=== PATIENT | female | born 1970 | race Caucasian/White ===

== ENCOUNTER → 2022-03-09 | Day surgery (SDC) | payer OTHER ==
[~2022-03-09] VITALS: Ht 167.6 cm; Wt 75.3 kg
[~2022-03-09] MED LIST: DAILY VALUE1 EACH PO; HYDROCODON-ACE1 EAC2 PO; ZYRTEC10 M3 PO
== END | disposition home or self-care (01) ==
LOC: OR 09:03
DX: S62.615A Displaced fracture of proximal phalanx of left ring finger, initial encounter for closed fracture (principal); W01.190A Fall on same level from slipping, tripping and stumbling with subsequent striking against furniture, initial encounter
CPT/HCPCS: 73130; 76000; C1713; J0690; J1100; J1170; J1885; J2001; J2250; J2405; J2704; J3010